=== PATIENT | female | born 1950 | race Caucasian/White ===

== ENCOUNTER 2021-09-25 00:22 | Emergency (ER) | payer BC ==
[~2021-09-25] VITALS: Ht 165.1 cm; Wt 54.4 kg
[2021-09-25 00:50] VITALS: BP 116/53
[2021-09-25] MEDS ORDERED: ONDANSETRON 4 MG/2 ML VIAL IVP ONE ×2 (01:00→06:15)
[2021-09-25] MEDS ORDERED: NACL 0.9% 1,000 ML IV ONE (01:00)
[2021-09-25] MEDS ORDERED: MORPHINE SULFATE 4 MG/ML SYR IVP ONE ×2 (01:00→06:15)
--- NOTE | 2021-09-25 01:00 | NUR ---
TO BED 10 FROM TRIAGE
--- NOTE | 2021-09-25 01:00 | NUR ---
70 YO F BIB DAUGHTER FROM HOME WITH C/C OF RT PELVIC PAIN X MONTHS, STATES LAST FEW DAYS PAIN HAS BEEN 10/10 . REPORTS N/V X3DAYS DENIES BLOOD IN EMESIS. PT STATES SHE HAS BEEN AT [facility] IN LAST 4WKS, PT STATES THEY FOUND BLOOD IN HER URINE. DENIES DIARRHEA. HX:AFIB AND COPD NKA
--- NOTE | 2021-09-25 01:10 | NUR ---
LAB IS AT BEDSIDE.
[2021-09-25 01:22] LABS: APPEARANCE,URINE CLEAR (CLEAR); BILIRUBIN,URINE NEGATIVE (NEGATIVE); BLOOD, URINE 3+ (NEGATIVE); COLOR,URINE YELLOW (YELLOW); LEUKOCYTE ESTERASE ,URINE NEGATIVE (NEGATIVE); NITRITE, URINE NEGATIVE (NEGATIVE); UGLUCOSE NEGATIVE (NEGATIVE)
[2021-09-25 01:22] LABS: BASOPHILS # (AUTO) 0.1 K/uL (0.00-0.22); BASOPHILS % (AUTO) 0.6 % (0.0-2.0); EOSINOPHILS # (AUTO) 0.1 K/uL (0-0.4); EOSINOPHILS % (AUTO) 1.4 % (0.0-4.0); HEMATOCRIT 35.6 % (36-48); HEMOGLOBIN 11.9 g/dL (12.0-16.0); LYMPHOCYTES # (AUTO) 1.7 K/uL (2.5-16.5); LYMPHOCYTES % (AUTO) 17.1 % (20.5-51.1); MEAN CORPUSCULAR HEMOGLOBIN 31 pg (27-31); MEAN CORPUSCULAR HGB CONC 33 g/dL (33-37); MEAN CORPUSCULAR VOLUME 93.2 fL (80-94); MONOCYTES # (AUTO) 0.8 K/uL (0.8-1.0); MONOCYTES % (AUTO) 8.4 % (1.7-9.3); NEUTROPHILS # (AUTO) 7.1 K/uL (1.8-7.7); NEUTROPHILS % (AUTO) 72.5 % (42.2-75.2); PLATELET COUNT (AUTO) 285 K/uL (140-450); RED BLOOD CELL COUNT(AUTO) 3.82 MIL/uL (4.20-5.40); RED CELL DISTRIBUTION WIDTH 13.4 % (11.6-13.7); WHITE BLOOD COUNT (AUTO) 9.8 K/uL (4.8-10.8)
[2021-09-25 01:41] LABS: ALBUMIN 2.8 g/dL (3.4-5.0); AMYLASE 31 U/L (25-115); ANION GAP 9.3 (8-16); ASPARTATE AMINOTRANSFERASE 19 U/L (15-37); CARBON DIOXIDE 30.2 mmol/L (21-32); CHLORIDE 103 mmol/L (98-107); CREATININE 0.7 mg/dL (0.6-1.3); GLUCOSE 122 mg/dL (74-106); LIPASE 29 U/L (73-393); POTASSIUM 3.5 mmol/L (3.5-5.1); SODIUM SERUM 139 mmol/L (136-145); TOTAL BILIRUBIN 0.8 mg/dL (0.0-1.0); UREA NITROGEN, BLOOD 9 mg/dL (7-18)
[2021-09-25 01:42] LABS: WBC,URINE 0-5 /HPF (0-5)
--- NOTE | 2021-09-25 01:59 | NUR ---
PT TAKEN TO CT.
--- NOTE | 2021-09-25 02:07 | NUR ---
PT BACK FROM CT.
[2021-09-25] MEDS ORDERED: ONDANSETRON 4 MG/2 ML VIAL ONE (02:12)
[2021-09-25] MEDS ORDERED: MORPHINE SULFATE 4 MG/ML SYR ONE (02:12)
--- NOTE | 2021-09-25 04:25 | NUR ---
PT APPEARS TO BE RESTING, EQUAL RISE AND FALL OF CHEST WALL. ALL NEEDS MET AT THIS TIME. BED LOCKED IN LOWEST POSITION, SIDE RAILS X2 FOR SAFETY.
[2021-09-25] MEDS ORDERED: cefTRIAXone 1,000 MG VIAL ONE (05:13)
[2021-09-25] MEDS ORDERED: NITR100C7 PO (06:03)
[2021-09-25] MEDS ORDERED: NAPR-54 PO (06:03)
--- NOTE | 2021-09-25 06:13 | NUR ---
pt ambulated to and back to bed.
--- NOTE | 2021-09-25 06:30 | NUR ---
us at bedside.
[2021-09-25 07:10] VITALS: BP 111/81
--- NOTE | 2021-09-25 07:10 | NUR ---
Patient discharged with v/s stable. Written and verbal after care instructions given and explained. Patient alert, oriented and verbalized understanding of instructions. Wheel Chair Assisted with to car. All questions addressed prior to discharge. ID band removed. Patient advised to follow up with PMD. Rx of naprosyn given. Patient educated on indication of medication including possible reaction and side effects. Opportunity to ask questions provided and answered.
== END 2021-09-25 07:10 | disposition home or self-care (01) ==
LOC: MED 00:22
DX: N39.0 Urinary tract infection, site not specified (principal); J44.9 Chronic obstructive pulmonary disease, unspecified; F17.200 Nicotine dependence, unspecified, uncomplicated; Z79.899 Other long term (current) drug therapy; Z98.890 Other specified postprocedural states; Z85.43 Personal history of malignant neoplasm of ovary
CPT/HCPCS: 36415; 74176; 80053; 81001; 82150; 83690; 85025; 87086; 93971; 96361; 96365; 96375; 96376; 99285; J0696; J2270; J2405; J7030; Q0092